=== PATIENT | female | born 1985 | race American Indian/Alaskan Native ===

== ENCOUNTER 2021-11-03 12:44 | Emergency (ER) | payer BC ==
[2021-11-03 13:33] VITALS: BP 127/89
[2021-11-03] MEDS ORDERED: ROCURONIUM 50 MG/5 ML INJ IV ONE (16:02)
[2021-11-03] MEDS ORDERED: ETOMIDATE 20 MG/10 ML INJ IV ONE (16:02)
== END 2021-11-03 17:00 | disposition left against medical advice (07) ==
LOC: ED 12:44
DX: R10.9 Unspecified abdominal pain (principal); Z53.21 Procedure and treatment not carried out due to patient leaving prior to being seen by health care provider
CPT/HCPCS: J3490